=== PATIENT | male | born 1960 | race African-American/Black ===

== ENCOUNTER 2021-09-15 20:33 | Emergency (ER) | payer SELFPAY ==
[~2021-09-15] VITALS: Ht 165.1 cm; Wt 72.0 kg
[2021-09-15] MEDS ORDERED: ORPHENADRINE CITRATE 60 MG/2 ML VIAL. IM ONE (21:45)
[2021-09-15] MEDS ORDERED: KETOROLAC 30 MG/ML VIAL. IM ONE (21:45)
--- NOTE | 2021-09-15 22:21 | PHYS DOC ---
Past Medical History Past Medical History: Hypertension Past Surgical History: Other Additional Past Surgical Histo: left arm, nose Smoking Status: Never Smoker Alcohol Use: Sober Additional Information: sober since 09/03/2021 Drug Use: None General Adult EDM: Chief Complaint: BACK PAIN OR INJURY HPI: HPI: Patient is a 61 year old male who presents with low back pain. Patient reports the pain is 7/10 bilateral low back that radiates on the left side. He describes the pain as "spasms" that are worse with movement. Patient denies injury or history of low back pain, dysuria, hematuria. Review of Systems: Review of Systems: ROS negative or noncontributory except as mentioned in HPI. Heart Score: C/O Chest Pain: No Current Medications: Current Medications Medications (Trade) Dose Ordered Sig/Tyler Start Time Stop Time Status Last Admin Dose Admin Ketorolac Tromethamine (Toradol 30mg Vial) 30 mg 1X ONCE 09/15/21 21:45 09/15/21 21:46 DC 09/15/21 21:45 30 MG Orphenadrine Citrate (Norflex) 60 mg 1X ONCE 09/15/21 21:45 09/15/21 21:46 DC 09/15/21 21:45 60 MG Allergies: Allergies: Allergies Coded Allergies Type Severity Reaction Last Updated Verified lisinopril Allergy Severe ANGIOEDEMA 09/15/21 Yes Physical Exam: PE: Constitutional: Well developed, well nourished, no acute distress, non-toxic appearance. HENT: Normocephalic, atraumatic, bilateral external ears normal, nose normal. Eyes: EOMI, conjunctiva normal, no discharge. Neck: Normal range of motion, no stridor. Skin: Warm, dry, no erythema, no rash. Back: No step-off, no midline/bony tenderness, no CVA tenderness, low thoracic/high lumbar muscle spasm appreciated left greater than right. Extremities: No cyanosis, no clubbing, ROM intact, no edema. Neurologic: Alert and oriented x4, normal motor function, normal sensory function, no focal deficits noted. Current Patient Data: Vital Signs: Vital Signs Date Time Temp Pulse Resp B/P (MAP) Pulse Ox O2 Delivery O2 Flow Rate FiO2 09/15/21 20:47 98.1 65 16 153/97 (115) 98 Room Air 98.1 Course & Med Decision Making: Course & Med Decision Making Pertinent Labs and Imaging studies reviewed. (See chart for details) Virgil Disclaimer: Virgil Disclaimer: This electronic medical record was generated, in whole or in part, using a voice recognition dictation system. Departure Departure Impression: Primary Impression: Spasm of muscle of lower back Additional Impression: Benign essential hypertension Disposition: HOME / SELF CARE / HOMELESS Condition: STABLE Patient Instructions: Back Pain, Adult, [id number] Additional Instructions: EMERGENCY DEPARTMENT GENERAL DISCHARGE INSTRUCTIONS Thank you for coming to [facility] Emergency Department (ED) today and trusting us with you care. We trust that you had a positive experience in our Emergency Department. If you wish to speak to the department management, you may call the director at . YOUR FOLLOW UP INSTRUCTIONS ARE FOLLOWS: 1. Follow up with your primary care doctor. If you do not have a primary doctor, please ask for a resource list of physicians or clinics that may be able to assist you with follow up care. 2. The emergency provider has interpreted your imaging studies, if any were ordered. The radiology bioinformatics specialist also reviewed them. If there is a change in the findings, you will be notified in 48 hours when at all possible. 3. If a lab test or culture has been done, your results will be reviewed and you will be notified if you need a change in treatment. 4. Follow instructions verbalized to you and refer to the printouts if needed. ADDITIONAL INSTRUCTIONS AND INFORMATION: 1. Your care today has been supervised by a physician who is specially trained in emergency care. Many problems require more than one evaluation for a complete diagnosis and treatment. We recommend that you schedule your follow up appointment as recommended to ensure complete treatment of you illness or injury. If you are unable to obtain follow up care and continue to have a problem, or if your condition worsens, we recommend that you return to the ED. 2. We are not able to safely determine your condition over the phone nor are we able to give sound medical advice over the phone. For these safety reasons, if you call for medical advice we will ask you to come to the ED for further evaluation. 3. If you have any questions regarding these discharge instructions please call the ED at . SAFETY INFORMATION: In the interest of safety, wellness, and injury prevention; we encourage you to wear your seat belt, if you smoke; quite smoking, and we encourage family to use a protective helmet for bicycling and other sporting events that present an increased risk for head injury. IF YOUR SYMPTOMS WORSEN OR NEW SYMPTOMS DEVELOP, OR YOU HAVE CONCERNS ABOUT YOUR CONDITION; OR IF YOUR CONDITION WORSENS WHILE YOU ARE WAITING FOR YOUR FOLLOW UP APPOINTMENT; EITHER CONTACT YOUR PRIMARY CARE DOCTOR, THE PHYSICIAN WHOSE NAME AND NUMBER YOU WERE GIVEN, OR RETURN TO THE ED IMMEDIATELY. Scripts Orphenadrine Citrate (ORPHENADRINE CITRATE) 100 Mg Tablet.er 1 TAB PO BID for 10 Days, #20 TAB 0 Refills Prov: DINA CARMONA 09/15/21 DINA CARMONA September 15, 2021 22:21
[2021-09-15] MEDS ORDERED: ORPH100T PO (23:19)
[2021-09-15 23:45] VITALS: BP 124/90
== END 2021-09-15 23:45 | disposition home or self-care (01) ==
LOC: ER 20:33
DX: M62.830 Muscle spasm of back (principal); I10 Essential (primary) hypertension; M54.50 Low back pain, unspecified; Z88.6 Allergy status to analgesic agent
CPT/HCPCS: 96372; 99284; J1885; J2360

== ENCOUNTER 2021-09-17 13:04 | Emergency (ER) | payer SELFPAY ==
[~2021-09-17] VITALS: Ht 165.1 cm; Wt 80.0 kg
[~2021-09-17 13:04] MED LIST: ORPH100T PO
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
[2021-09-17 13:54] LABS: INFLUENZA A PATIENT NEGATIVE (NEGATIVE); INFLUENZA B PATIENT NEGATIVE (NEGATIVE)
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
[2021-09-17 15:12] LABS: HYALINE CASTS, URINE FEW /HPF
[2021-09-17 15:13] LABS: BACTERIA,URINE 0 /HPF (0-FEW)
[2021-09-17 15:32] LABS: AMPHETAMINE/METHAMPHETAMINE NEG (NEG); BARBITURATES NEG (NEG); BENZODIAZEPINES NEG (NEG); CANNABINOIDS NEG (NEG); COCAINE NEG (NEG); METHADONE NEG (NEG); OPIATES NEG (NEG); PHENCYCLIDINE NEG (NEG)
[2021-09-17] MEDS ORDERED: GUAI118L13 PO (16:11)
[2021-09-17] MEDS ORDERED: CYCL10TA19 PO (16:11)
[2021-09-17 16:30] VITALS: BP 147/82
== END 2021-09-17 16:30 | disposition home or self-care (01) ==
LOC: ER 13:04
DX: R05.9 Cough, unspecified (principal); R50.9 Fever, unspecified; M54.50 Low back pain, unspecified; R06.2 Wheezing; I10 Essential (primary) hypertension; Z88.6 Allergy status to analgesic agent
CPT/HCPCS: 71045; 80307; 81001; 87804; 99284